=== PATIENT | female | born 2000 | race Caucasian/White ===

== ENCOUNTER 2019-04-21 00:07 | Emergency (ER) | payer BC ==
[2019-04-21] MEDS ORDERED: Haloperidol INJ IV/IM* 5 MG/ML AMP IM ONE (00:36)
[2019-04-21] MEDS ORDERED: LORazepam INJ* 2 MG/ML 1 ML VIAL IM ONE (00:36)
[2019-04-21] MEDS ORDERED: diPHENhydraMINE IV* 50 MG/ML 1 ml VIAL (BENADRYL) IM ONE (00:36)
[2019-04-21] MEDS ORDERED: LORazepam INJ* 2 MG/ML 1 ML VIAL ONE ×2 (00:37→01:05)
--- NOTE | 2019-04-21 00:53 | ED ---
Psychiatric Complaint - HPI Summary HPI Summary: Patient is a 19 y/o F presenting to [facility] for MHE under 941 status. Per triage, "Pt brought in by police willing. Pt states that she can't verify her date of . Pt asked for a piece of paper. She is writing things down on paper stating she is "trying to figure things out."". Nurse Eric reports that the patient has Hx of celiac disease and hep C. When asked what had happened, patient replies, "I don't know". She is uncooperative with exam and history, level 5 caveat. - History Of Current Complaint Chief Complaint: EDMentalHealth Time Seen by Provider: 04/21/19 00:31 Hx Obtained From: Other: - police, nurse Hx From Patient Unobtainable Due To: Other - uncooperative with exam and history , level 5 caveat. Onset/Duration: Still Present Timing: Constant Severity Currently: None Aggravating Factor(s): Nothing Alleviating Factor(s): Nothing - Allergies/Home Medications Allergies/Adverse Reactions: Allergies Allergy/AdvReac Type Severity Reaction Status Date / Time No Known Allergies Allergy Verified 04/21/19 01:14 PMH/Surg Hx/FS Hx/Imm Hx Sensory History: Denies: Hx Legally Blind, Hx Deafness Opthamlomology History: Denies: Hx Legally Blind EENT History: Denies: Hx Deafness Infectious Disease History: No Infectious Disease History: Reports: Hx Hepatitis - C Denies: Traveled Outside the [place] in Last 30 Days - Family History Known Family History: Positive: Unknown - uncooperative with exam and history, level 5 caveat. Review of Systems - ROS Summary Review of Systems Summary: uncooperative with exam and history, level 5 caveat. Negative: Fever - on vitals, temp is 97.9 F Psychological: Other - MHE All Other Systems Reviewed And Are Negative: No - Comments Additional Review of Systems Comments: uncooperative with exam and history, level 5 caveat. Physical Exam - Summary Physical Exam Summary: Appearance: Well-appearing, Well-nourished, lying in bed Skin: Warm, dry, no obvious rash Eyes: sclera anicteric, no conjunctival pallor ENT: mucous membranes moist Neck: deferred Respiratory: No signs of respiratory distress Cardiovascular: Appears well perfused, pulses are nml Abdomen: deferred Musculoskeletal: Moving all 4 extremities without obvious discomfort Neurological: Awake and alert, mentation is normal, speech is fluent and appropriate Psychiatric: Patient is uncooperative Triage Information Reviewed: Yes Vital Signs On Initial Exam: Initial Vitals Temp Pulse Resp BP Pulse Ox 97.9 F 102 18 120/81 99 04/21/19 00:10 04/21/19 00:10 04/21/19 00:10 04/21/19 00:10 04/21/19 00:10 Vital Signs Reviewed: Yes Completion Of Physical Exam Limited Due To: Level 5 Diagnostics - Vital Signs Vital Signs Temp Pulse Resp BP Pulse Ox 04/21/19 00:10 97.9 F 102 18 120/81 99 - Laboratory Result Diagrams: 04/21/19 01:50 04/21/19 01:50 Lab Statement: Any lab studies that have been ordered have been reviewed, and results considered in the medical decision making process. Re-Evaluation - Re-Evaluation First Eval Re-Evaluation Time: 05:57 Comment: Nurse Reyes reports that the patient's grandmother had called with more information with regards to the patient. She reported that the patient had recently been in another hospital for MHE. Patient uses meth and "ice". She states that whenever the patient attempts to stop using these drugs, she begins to experience hallucinations. Patient had broken into a neighbor's house as she had hallucinations of being chased. It is reported that the patient had no SI/ HI. Course/Dx - Course Course Of Treatment: Patient is a 19 y/o F presenting to [facility] for MHE under 941 status. Per triage, "Pt brought in by police willing. Pt states that she can 't verify her date of . Pt asked for a piece of paper. She is writing things down on paper stating she is "trying to figure things out."". Nurse Reyes reports that the patient has Hx of celiac disease and hep C. When asked what had happened, patient replies, "I don't know". She is uncooperative with exam and history, level 5 caveat. Patient was hostile, aggressive, and uncoopeartive with staff. She received ativan 1 mg IM, Benadryl 50 mg IM, and Haldol 5 mg IM. 0557 - Nurse Reyes reports that the patient's grandmother had called with more information with regards to the patient. She reported that the patient had recently been in another hospital for MHE. Patient uses meth and "ice". She states that whenever the patient attempts to stop using these drugs, she begins to experience hallucinations. Patient had broken into a neighbor's house as she had hallucinations of being chased. It is reported that the patient had no SI/ HI. Tox screen showed presumptive positive for amphetamines. UA showed 3+ blood , 2+ leukocyte esterase, 2+ WBC, 3+ RBC, and present squamous epith cells. Bloodwork was obtained. Abnormal values include glucose 107, absolute eos 0.7 and WBC 11.3. Beta HCG was negative and TSH within normal limits. Patient is medically cleared for MHE. Patient is signed out to Dr. Mauro at 0700 04/21/19 shift change pending MHE and disposition of this patient. - Differential Dx/Clinical Impression Provider Diagnosis: Substance induced mood disorder Discharge ED - Sign-Out/Discharge Documenting (check all that apply): Sign-Out Patient Signing out patient TO: Carlos Mauro Patient Received Moderate/Deep Sedation with Procedure: No - Discharge Plan Condition: Stable Disposition: HOME Prescriptions: hydrOXYzine HCL TAB* [Atarax 25 MG TAB*] 25 mg PO TID PRN #15 tab PRN Reason: Anxiety Sulfamethox/Trimethoprim DS* [Bactrim DS 800/160 TAB*] 1 tab PO BID #10 tab Patient Education Materials: Methamphetamine Abuse (ED) Referrals: [facility] [Outside] [facility] [Outside] No Primary Care Phys,NOPCP [Medical Doctor] - - Billing Disposition and Condition Condition: STABLE Disposition: Home - Attestation Statements Document Initiated by Cathie: Yes Documenting Scribe: ERIN KIRAN Provider For Whom Cathie is Documenting (Include Credential): DERICK GUAJARDO MD Scribe Attestation: ERIN Brush, scrkaushiked for DERICK GUAJARDO MD on 04/27/19 at 1842. Scribe Documentation Reviewed: Yes Provider Attestation: The documentation as recorded by the ERIN enriquez accurately reflects the service I personally performed and the decisions made by me, DERICK GUAJARDO MD Status of Scribe Document: Viewed
[2019-04-21] MEDS ORDERED: Haloperidol INJ IV/IM* 5 MG/ML AMP ONE (01:05)
[2019-04-21] MEDS ORDERED: diPHENhydraMINE IV* 50 MG/ML 1 ml VIAL (BENADRYL) ONE (01:05)
[2019-04-21 01:21] LABS: Urine Appearance Clear; Urine Bacteria Absent (Absent); Urine Bilirubin Negative (Negative); Urine Blood 3+ (Negative); Urine Color Yellow; Urine Glucose Negative (Negative); Urine Ketones Negative (Negative); Urine Nitrite Negative (Negative); Urine Protein Negative (Negative); Urine Red Blood Cell 3+(>10/hpf) (Absent); Urine Specific Gravity 1.005 (1.010-1.030); Urine Squamous Epithelial Cell Present (Absent); Urine Urobilinogen Negative (Negative); Urine White Blood Cell 2+(11-20/hpf) (Absent)
[2019-04-21 01:31] LABS: Urine Benzodiazepine Screen None Detected (None Detect); Urine Opiates Screen None Detected (None Detect)
[2019-04-21 01:56] LABS: ABS Basophils 0.1 10^3/ul (0-0.2); ABS Eosinophils 0.7 10^3/ul (0-0.6); ABS Lymphocytes 3.8 10^3/ul (1.0-4.8); ABS Monocytes 0.8 10^3/ul (0-0.8); ABS Neutrophils 5.9 10^3/ul (1.5-7.7); Eosinophil % 5.9 %; Hematocrit 41 % (35-47); Hemoglobin 13.8 g/dL (12.0-16.0); Lymphocyte % 33.8 %; Mean Corpuscular HGB Conc 34 g/dL (31-36); Mean Corpuscular Hemoglobin 29 pg (27-31); Mean Corpuscular Volume 86 fL (80-97); Mean Platelet Volume 7.4 fL (7.4-10.4); Platelet Count 302 10^3/uL (150-450); Red Blood Count 4.77 10^6 /uL (3.70-4.87); Red Cell Distribution Width 15 % (10-15); White Blood Count 11.3 10^3/uL (3.5-10.8)
[2019-04-21 02:13] LABS: ALT 20 U/L (7-52); AST 29 U/L (13-39); Albumin/Globulin Ratio 1.3 (1-3); Alkaline Phosphatase 99 U/L (34-104); Anion Gap 9 mmol/L (2-11); BUN/Creatinine Ratio 14.9 (8-20); Blood Urea Nitrogen 10 mg/dL (6-24); CO2 Carbon Dioxide 28 mmol/L (22-32); Calcium 9.4 mg/dL (8.6-10.3); Chloride 101 mmol/L (101-111); EGFR African American 135.8 (>60); EGFR Non-African American 112.2 (>60); Glucose 107 mg/dL (70-100); Potassium 3.5 mmol/L (3.5-5.0); Sodium 138 mmol/L (135-145)
[2019-04-21 02:18] LABS: Acetaminophen < 15 mcg/mL; Alcohol < 10 mg/dL (<10); Salicylate < 2.50 mg/dL (<30)
[2019-04-21 02:19] LABS: HCG Pregnancy < 0.60 mIU/mL
[2019-04-21 02:33] LABS: TSH (Thyroid Stimulating Horm) 2.81 mcIU/mL (0.34-5.60)
--- NOTE | 2019-04-21 09:22 | PN ---
ED Psychiatric Progress Note Date of Service: 04/21/19 Subjective: This is a 19 year-old F who is pending admission to [facility] / transfer to another psychiatric facility / discharge to home / or being observed secondary to hallucinations, drug use. Pt. examined in room 5 at 0915. She is sleeping comfortably. 1:1 outside of room. Objective: Vitals: Most recent vital signs documented below. General NAD Laboratory: Current laboratory results documented below. Assessment: drug use Plan: Pending MHE. Vital Signs Temp Pulse Resp BP Pulse Ox 97.9 F 75 18 103/67 98 04/21/19 00:10 04/21/19 09:00 04/21/19 01:15 04/21/19 09:00 04/21/19 09:00 Lab Results - Entire Visit 04/21/19 04/21/19 04/21/19 01:50 01:50 00:54 WBC 11.3 H RBC 4.77 Hgb 13.8 Hct 41 MCV 86 MCH 29 MCHC 34 RDW 15 Plt Count 302 MPV 7.4 Neut % (Auto) 52.3 Lymph % (Auto) 33.8 Iron % (Auto) 7.4 Eos % (Auto) 5.9 Baso % (Auto) 0.6 Absolute Neuts (auto) 5.9 Absolute Lymphs (auto) 3.8 Absolute Monos (auto) 0.8 Absolute Eos (auto) 0.7 H Absolute Basos (auto) 0.1 Absolute Nucleated RBC 0.0 Nucleated RBC % 0.0 Sodium 138 Potassium 3.5 Chloride 101 Carbon Dioxide 28 Anion Gap 9 BUN 10 Creatinine 0.67 Est GFR ( Amer) 135.8 Est GFR (Non-Af Amer) 112.2 BUN/Creatinine Ratio 14.9 Glucose 107 H Calcium 9.4 Total Bilirubin 0.50 AST 29 ALT 20 Alkaline Phosphatase 99 Total Protein 7.0 Albumin 4.0 Globulin 3.0 Albumin/Globulin Ratio 1.3 TSH 2.81 Beta HCG, Quant < 0.60 Urine Color Urine Appearance Urine pH Ur Specific [place] Urine Protein Urine Ketones Urine Blood Urine Nitrate Urine Bilirubin Urine Urobilinogen Ur Leukocyte Esterase Urine WBC (Auto) Urine RBC (Auto) Ur Squamous Epith Cells Urine Bacteria Urine Glucose Salicylates < 2.50 Urine Opiates Screen None detected Acetaminophen < 15 Ur Barbiturates Screen None detected Ur Phencyclidine Scrn None detected Ur Amphetamines Screen Presumptive positive A U Benzodiazepines Scrn None detected Urine Cocaine Screen None detected U Cannabinoids Screen None detected Serum Alcohol < 10 04/21/19 00:54 WBC RBC Hgb Hct MCV MCH MCHC RDW Plt Count MPV Neut % (Auto) Lymph % (Auto) Iron % (Auto) Eos % (Auto) Baso % (Auto) Absolute Neuts (auto) Absolute Lymphs (auto) Absolute Monos (auto) Absolute Eos (auto) Absolute Basos (auto) Absolute Nucleated RBC Nucleated RBC % Sodium Potassium Chloride Carbon Dioxide Anion Gap BUN Creatinine Est GFR ( Amer) Est GFR (Non-Af Amer) BUN/Creatinine Ratio Glucose Calcium Total Bilirubin AST ALT Alkaline Phosphatase Total Protein Albumin Globulin Albumin/Globulin Ratio TSH Beta HCG, Quant Urine Color Yellow Urine Appearance Clear Urine pH 7.0 Ur Specific [place] 1.005 L Urine Protein Negative Urine Ketones Negative Urine Blood 3+ A Urine Nitrate Negative Urine Bilirubin Negative Urine Urobilinogen Negative Ur Leukocyte Esterase 2+ A Urine WBC (Auto) 2+(11-20/hpf) A Urine RBC (Auto) 3+(>10/hpf) A Ur Squamous Epith Cells Present A Urine Bacteria Absent Urine Glucose Negative Salicylates Urine Opiates Screen Acetaminophen Ur Barbiturates Screen Ur Phencyclidine Scrn Ur Amphetamines Screen U Benzodiazepines Scrn Urine Cocaine Screen U Cannabinoids Screen Serum Alcohol
--- NOTE | 2019-04-21 14:10 | ED ---
Progress - Progress Note Progress Note: Receiving sign-out from Dr. Cole at shift change 0700 pending MHE. MHE discharged the patient to [facility] with a Dx of substance induced mood disorder, per Dr. Ray, Psychiatry. - Consult/PCP Time Called: 13:19 Re-Evaluation - Re-Evaluation First Eval Re-Evaluation Time: 05:57 Comment: Nurse Eric reports that the patient's grandmother had called with more information with regards to the patient. She reported that the patient had recently been in another hospital for MHE. Patient uses meth and "ice". She states that whenever the patient attempts to stop using these drugs, she begins to experience hallucinations. Patient had broken into a neighbor's house as she had hallucinations of being chased. It is reported that the patient had no SI/ HI. Course/Dx - Course Course Of Treatment: Receiving sign-out from Dr. Cole at shift change 0700 pending MHE. Patient has remained stable. MHE discharged the patient to [facility] with a Dx of substance induced mood disorder, per Dr. Ray, Psychiatry. - Diagnoses Provider Diagnoses: Substance induced mood disorder Discharge ED - Sign-Out/Discharge Documenting (check all that apply): Patient Departure - Discharge, per MHE Patient Received Moderate/Deep Sedation with Procedure: No - Discharge Plan Condition: Stable Referrals: No Primary Care Phys,NOPCP [Medical Doctor] - - Attestation Statements Document Initiated by Scribe: Yes Documenting Scribe: Janes Paz Provider For Whom Scribe is Documenting (Include Credential): Carlos Mauro MD Scribe Attestation: Janes Brush, scribed for Carlos Mauro MD on 04/21/19 at 1420. Status of Scribe Document: Ready
[2019-04-21 14:34] VITALS: BP 97/53
[2019-04-21] MEDS ORDERED: Sulfamethox/Trimethoprim DS 800/160* TAB PO ONE (14:35)
== END 2019-04-21 14:44 | disposition home or self-care (01) ==
LOC: ED 00:07
DX: F15.14 Other stimulant abuse with stimulant-induced mood disorder (principal); B19.20 Unspecified viral hepatitis C without hepatic coma; K90.0 Celiac disease; F15.10 Other stimulant abuse, uncomplicated
CPT/HCPCS: 36415; 80053; 80307; 80320; 80329; 81003; 81015; 84443; 84702; 85025; 87077; 87086; 87186; 96372; 99284; G0480; J1200; J1630; J2060

== ENCOUNTER 2019-05-20 17:09 | Emergency (ER) | payer BC ==
--- NOTE | 2019-05-20 17:42 | ED ---
Psychiatric Complaint - HPI Summary HPI Summary: The patient is a 19 y/o F brought in by police as 941 to [facility] with a chief complaint of running from the police after attempting to jump off a two story building tonight. She denies any SI or HI. Per grandmother, the patient's friend and significant other had to talk the patient down from paranoia and take a knife away from her because she was threatening to hurt herself so the police were called. Currently, her symptoms are rated 5/10 in severity. PMHx: schizophrenia, delusions, hepatitis C, celiac disease. Heavy every day smoker, occasional EtOH, marijuana and ICE use. Medications reviewed. Allergies noted. - History Of Current Complaint Chief Complaint: EDMentalHealth Hx Obtained From: Patient, Other: - police report Onset/Duration: Still Present Severity Initially: Moderate Severity Currently: Moderate Character: Depressed Aggravating Factor(s): Nothing Alleviating Factor(s): Nothing Related History: Positive For: Prior Psychiatric Issues Has Suicidal: Denies: Thoughts Has Homicidal: Denies: Thoughts - Allergies/Home Medications Allergies/Adverse Reactions: Allergies Allergy/AdvReac Type Severity Reaction Status Date / Time No Known Allergies Allergy Verified 04/21/19 01:14 Home Medications: Home Medications Naloxone Nasal [place]* [Narcan Nasal [place]] 1 inh LEFT NARE ONCE PRN 05/20/19 [ History Confirmed 05/20/19] PMH/Surg Hx/FS Hx/Imm Hx Endocrine/Hematology History: Denies: Hx Diabetes Cardiovascular History: Denies: Hx Hypercholesterolemia, Hx Hypertension Sensory History: Denies: Hx Legally Blind, Hx Deafness Opthamlomology History: Denies: Hx Legally Blind - Surgical History Surgical History: None Surgery Procedure, Year, and Place: none Infectious Disease History: No Infectious Disease History: Reports: Hx Hepatitis - C Denies: Traveled Outside the [place] in Last 30 Days - Family History Known Family History: Negative: Hypertension, Diabetes - Social History Alcohol Use: Occasionally Hx Substance Use: Yes Substance Use Type: Reports: Marijuana, Other - ICE Hx Tobacco Use: Yes Smoking Status (MU): Heavy Every Day Tobacco Smoker Review of Systems Negative: Fever Negative: Other - SI, HI All Other Systems Reviewed And Are Negative: Yes Physical Exam - Summary Physical Exam Summary: VITAL SIGNS: Reviewed. GENERAL: Patient is a well-developed and nourished female who is lying comfortable in the stretcher. Patient is not in any acute respiratory distress. HEAD AND FACE: No signs of trauma. No ecchymosis, hematomas or skull depressions. No sinus tenderness. EYES: PERRLA, EOMI x 2, No injected conjunctiva, no nystagmus. EARS: Hearing grossly intact. Ear canals and tympanic membranes are within normal limits. MOUTH: Oropharynx within normal limits. NECK: Supple, trachea is midline, no adenopathy, no JVD, no carotid bruit, no c- spine tenderness, neck with full ROM. CHEST: Symmetric, no tenderness at palpation. LUNGS: Clear to auscultation bilaterally. No wheezing or crackles. CVS: Regular rate and rhythm, S1 and S2 present, no murmurs or gallops appreciated. ABDOMEN: Soft, non-tender. No signs of distention. No rebound, no guarding, and no masses palpated. Bowel sounds are normal. EXTREMITIES: FROM in all major joints, no edema, no cyanosis or clubbing. NEURO: Alert and oriented x 3. No acute neurological deficits. Speech is normal and follows commands. SKIN: Dry and warm. PSYCH: Depressed, quiet, and denies any suicidal thoughts or plan. No homicidal thoughts or plan. No signs of psychosis or pressure speech. No tangential speech. Triage Information Reviewed: Yes Vital Signs On Initial Exam: Initial Vitals Temp Pulse Resp BP Pulse Ox 97.4 F 102 18 115/87 96 05/20/19 17:11 05/20/19 17:11 05/20/19 17:11 05/20/19 17:11 05/20/19 17:11 Vital Signs Reviewed: Yes Procedures - Sedation Patient Received Moderate/Deep Sedation with Procedure: No Diagnostics - Vital Signs Vital Signs Temp Pulse Resp BP Pulse Ox 05/20/19 17:11 97.4 F 102 18 115/87 96 - Laboratory Lab Statement: Any lab studies that have been ordered have been reviewed, and results considered in the medical decision making process. Re-Evaluation - Re-Evaluation First Eval Re-Evaluation Time: 18:00 Change: Unchanged Comment: Patient is medically clear for mental health back panel padder. Course/Dx - Course Assessment/Plan: Patient is a 19 y/o F who has psychiatric history brought in as 941 for wanting to hurt herself earlier with a knife, but police were called atfer the knife was taken away from her by friend and significant other. She is denying any SI or HI now. Blood work w/o a significant abnormality. She is medically cleared. She is awaiting a MHE. Patient is hemodynamically stable and A+O x 3. Patient will be signed out to Dr. Vincent at shift change at 1900 on . - Differential Dx/Clinical Impression Provider Diagnosis: Psychosis Discharge ED - Sign-Out/Discharge Documenting (check all that apply): Sign-Out Patient Signing out patient TO: Madhu Vincent - Patient is a sign-out to Dr. Madhu Vincent MD, at change of shift at 1900 on 05/20/19, pending mental health evaluation and disposition. - Discharge Plan Referrals: Sylvia Mitchell VOCATIONAL REHABILITATION ADMINISTRATOR [Primary Care Provider] - - Attestation Statements Document Initiated by Cathie: Yes Documenting Scribe: Penny Conner Provider For Whom Cathie is Documenting (Include Credential): Dr. Jian Lopez MD Scribe Attestation: Penny Brush scribed for Dr. Jian Lopez MD on 05/20/19 at 1850. Scribe Documentation Reviewed: Yes Provider Attestation: The documentation as recorded by the Penny enriquez accurately reflects the service I personally performed and the decisions made by me, Dr. Jian Lopez MD Status of Scribe Document: Ready
[2019-05-20 19:05] LABS: ABS Eosinophils 0.5 10^3/ul (0-0.6); ABS Lymphocytes 2.2 10^3/ul (1.0-4.8); ABS Monocytes 0.8 10^3/ul (0-0.8); ABS Neutrophils 8.2 10^3/ul (1.5-7.7); Eosinophil % 4.5 %; Hematocrit 40 % (35-47); Hemoglobin 13.6 g/dL (12.0-16.0); Lymphocyte % 18.6 %; Mean Corpuscular HGB Conc 34 g/dL (31-36); Mean Corpuscular Hemoglobin 30 pg (27-31); Mean Corpuscular Volume 88 fL (80-97); Mean Platelet Volume 7.8 fL (7.4-10.4); Platelet Count 258 10^3/uL (150-450); Red Blood Count 4.55 10^6 /uL (3.70-4.87); Red Cell Distribution Width 16 % (10-15); White Blood Count 11.8 10^3/uL (3.5-10.8)
[2019-05-20 19:15] LABS: Urine Appearance Turbid; Urine Bacteria Absent (Absent); Urine Bilirubin Negative (Negative); Urine Blood Negative (Negative); Urine Color Yellow; Urine Glucose Negative (Negative); Urine Ketones Negative (Negative); Urine Nitrite Negative (Negative); Urine Protein 1+(30 mg/dL) (Negative); Urine Red Blood Cell 1+(3-5/hpf) (Absent); Urine Specific Gravity 1.015 (1.010-1.030); Urine Squamous Epithelial Cell Present (Absent); Urine Transitional Epithelial Present (Absent); Urine Urobilinogen Negative (Negative); Urine White Blood Cell 3+(>20/hpf) (Absent)
[2019-05-20 19:20] LABS: ALT 11 U/L (7-52); AST 15 U/L (13-39); Albumin 4.2 g/dL (3.2-5.2); Albumin/Globulin Ratio 1.4 (1-3); Alkaline Phosphatase 96 U/L (34-104); Anion Gap 6 mmol/L (2-11); BUN/Creatinine Ratio 14.7 (8-20); Blood Urea Nitrogen 11 mg/dL (6-24); CO2 Carbon Dioxide 30 mmol/L (22-32); Calcium 9.3 mg/dL (8.6-10.3); Chloride 103 mmol/L (101-111); EGFR African American 119.2 (>60); EGFR Non-African American 98.5 (>60); Globulin 2.9 g/dL (2-4); Glucose 87 mg/dL (70-100); Potassium 3.4 mmol/L (3.5-5.0); Sodium 139 mmol/L (135-145); Total Protein 7.1 g/dL (6.4-8.9)
[2019-05-20 19:37] LABS: Acetaminophen < 15 mcg/mL; Alcohol < 10 mg/dL (<10); Salicylate < 2.50 mg/dL (<30)
[2019-05-20 19:40] LABS: TSH (Thyroid Stimulating Horm) 0.86 mcIU/mL (0.34-5.60)
[2019-05-20 19:43] LABS: Urine Benzodiazepine Screen None Detected (None Detect); Urine Opiates Screen None Detected (None Detect)
--- NOTE | 2019-05-20 20:00 | ED ---
Progress - Progress Note Progress Note: Pt is a signout from Dr. Lopez at 1900 on 05/20/19 pending MHE. Re-Evaluation - Re-Evaluation First Eval Re-Evaluation Time: 00:57 Change: Unchanged Comment: Pt will be placed on a MH Hold until the morning as per Dr. Larson. Course/Dx - Course Course Of Treatment: Patient was signed out by Dr. Lopez pending mental health evaluation. The mental health family and consumer science professor evaluated patient and placed her on mental health hold until psychiatry can see patient in person. Patient signed out to Dr. Lopez pending MHE - Diagnoses Provider Diagnoses: Psychosis Discharge ED - Sign-Out/Discharge Documenting (check all that apply): Sign-Out Patient, Receiving Sign-Out Signing out patient TO: Jian Lopez Receiving patient FROM: Jian Lopez - Discharge Plan Condition: Stable Referrals: Sylvia Mitchell, REFUELING RAMP SUPERVISOR [Primary Care Provider] - - Billing Disposition and Condition Condition: STABLE - Attestation Statements Document Initiated by Scribe: Yes Documenting Scribe: Michelle Crowder Provider For Whom Scribe is Documenting (Include Credential): Madhu Vincent MD. Scribe Attestation: Michelle Brush, clementinaed for Madhu Vincent MD. on 05/21/19 at 0355. Scribe Documentation Reviewed: Yes Provider Attestation: The documentation as recorded by the scribeMichelle accurately reflects the service I personally performed and the decisions made by Madhu sanchez MD. Status of Scribe Document: Viewed
[2019-05-20] MEDS: Nicotine* 4MG (FRUIT FLAVOR) GUM PO PRN (20:29)
[2019-05-21] MEDS: diPHENhydraMINE PO* 25 MG PO ONE (01:24)
[2019-05-21] MEDS: Haloperidol TAB* 5 MG PO ONE (01:25)
--- NOTE | 2019-05-21 08:00 | ED ---
Progress - Progress Note Progress Note: This pt was signed out from Dr. Vincent to Dr. Lopez pending evaluation from psychiatrist in the morning. Course/Dx - Diagnoses Provider Diagnoses: Psychosis Discharge ED - Sign-Out/Discharge Documenting (check all that apply): Receiving Sign-Out Receiving patient FROM: Madhu Vincent - Discharge Plan Condition: Stable Referrals: Sylvia Mitchell, AIR SUPPORT OPERATIONS OPERATOR [Primary Care Provider] - - Attestation Statements Document Initiated by Scribe: Yes Documenting Scribe: Kaylee Zapien Provider For Whom Scribe is Documenting (Include Credential): Jian Lopez MD Scribe Attestation: Kaylee Brush, scribed for Jian Lopez MD on 05/21/19 at 0759. Status of Scribe Document: Viewed
--- NOTE | 2019-05-21 08:34 | PN ---
ED Psychiatric Progress Note Date of Service: 05/20/19 Subjective: This is a 19 year-old F who is pending admission to [facility] / transfer to another psychiatric facility / discharge to home / or being observed secondary to psychosis. Pt. examined in room 4 at 0830. She is sleeping comfortably. 1:1 outside of room. Objective: Vitals: Most recent vital signs documented below. General NAD. Laboratory: Current laboratory results documented below. Assessment: Psychosis. Plan: Pending MHE. Vital Signs Temp Pulse Resp BP Pulse Ox 97.7 F 67 18 94/47 97 05/21/19 03:55 05/21/19 03:55 05/21/19 03:55 05/21/19 03:55 05/21/19 03:55 Lab Results - Entire Visit 05/20/19 05/20/19 05/20/19 18:47 18:47 18:25 WBC 11.8 H RBC 4.55 Hgb 13.6 Hct 40 MCV 88 MCH 30 MCHC 34 RDW 16 H Plt Count 258 MPV 7.8 Neut % (Auto) 70.0 Lymph % (Auto) 18.6 [place] % (Auto) 6.5 Eos % (Auto) 4.5 Baso % (Auto) 0.4 Absolute Neuts (auto) 8.2 H Absolute Lymphs (auto) 2.2 Absolute Monos (auto) 0.8 Absolute Eos (auto) 0.5 Absolute Basos (auto) 0.0 Absolute Nucleated RBC 0.0 Nucleated RBC % 0.0 Sodium 139 Potassium 3.4 L Chloride 103 Carbon Dioxide 30 Anion Gap 6 BUN 11 Creatinine 0.75 Est GFR ( Amer) 119.2 Est GFR (Non-Af Amer) 98.5 BUN/Creatinine Ratio 14.7 Glucose 87 Calcium 9.3 Total Bilirubin 0.50 AST 15 ALT 11 Alkaline Phosphatase 96 Total Protein 7.1 Albumin 4.2 Globulin 2.9 Albumin/Globulin Ratio 1.4 TSH 0.86 Urine Color Urine Appearance Urine pH Ur Specific [place] Urine Protein Urine Ketones Urine Blood Urine Nitrate Urine Bilirubin Urine Urobilinogen Ur Leukocyte Esterase Urine WBC (Auto) Urine RBC (Auto) Ur Squamous Epith Cells Ur Transition Epith Cell Urine Bacteria Urine Glucose Salicylates < 2.50 Urine Opiates Screen None detected Acetaminophen < 15 Ur Barbiturates Screen None detected Ur Phencyclidine Scrn None detected Ur Amphetamines Screen Presumptive positive A U Benzodiazepines Scrn None detected Urine Cocaine Screen None detected U Cannabinoids Screen None detected Serum Alcohol < 10 05/20/19 18:25 WBC RBC Hgb Hct MCV MCH MCHC RDW Plt Count MPV Neut % (Auto) Lymph % (Auto) [place] % (Auto) Eos % (Auto) Baso % (Auto) Absolute Neuts (auto) Absolute Lymphs (auto) Absolute Monos (auto) Absolute Eos (auto) Absolute Basos (auto) Absolute Nucleated RBC Nucleated RBC % Sodium Potassium Chloride Carbon Dioxide Anion Gap BUN Creatinine Est GFR ( Amer) Est GFR (Non-Af Amer) BUN/Creatinine Ratio Glucose Calcium Total Bilirubin AST ALT Alkaline Phosphatase Total Protein Albumin Globulin Albumin/Globulin Ratio TSH Urine Color Yellow Urine Appearance Turbid Urine pH 7.0 Ur Specific [place] 1.015 Urine Protein 1+(30 mg/dl) A Urine Ketones Negative Urine Blood Negative Urine Nitrate Negative Urine Bilirubin Negative Urine Urobilinogen Negative Ur Leukocyte Esterase 2+ A Urine WBC (Auto) 3+(>20/hpf) A Urine RBC (Auto) 1+(3-5/hpf) A Ur Squamous Epith Cells Present A Ur Transition Epith Cell Present A Urine Bacteria Absent Urine Glucose Negative Salicylates Urine Opiates Screen Acetaminophen Ur Barbiturates Screen Ur Phencyclidine Scrn Ur Amphetamines Screen U Benzodiazepines Scrn Urine Cocaine Screen U Cannabinoids Screen Serum Alcohol
--- NOTE | 2019-05-21 16:44 | ED ---
Progress - Progress Note Progress Note: PRIOR CHART SIGNED BY NURYAKE. This pt was signed out from Dr. Vincent to Dr. Lopez pending evaluation from psychiatrist in the morning. Re-Evaluation - Re-Evaluation First Eval Re-Evaluation Time: 00:57 Change: Unchanged Comment: Pt will be placed on a MH Hold until the morning as per Dr. Larson. Course/Dx - Course Course Of Treatment: Pt had a mental health evaluation and her case was reviewed by Dr. Ray, psychiatrist. Dr. Ray cleared the pt for discharged with dx amphetamine induced mood disorder. - Diagnoses Provider Diagnoses: Amphetamine-induced mood disorder Discharge ED - Sign-Out/Discharge Documenting (check all that apply): Patient Departure - Discharge home, Receiving Sign-Out Receiving patient FROM: Madhu Vincent - Discharge Plan Condition: Stable Disposition: HOME Referrals: Sylvia Mitchell SURGICAL TECHNOLOGIST [Primary Care Provider] - - Billing Disposition and Condition Condition: STABLE Disposition: Home - Attestation Statements Document Initiated by Cathie: Yes Documenting Scribe: Kaylee Zapien Provider For Whom Cathie is Documenting (Include Credential): Jian Lopez MD Scribe Attestation: Kaylee Brush scribed for Jian Lopez MD on 05/22/19 at 0837. Scribe Documentation Reviewed: Yes Provider Attestation: The documentation as recorded by the Kaylee enriquez accurately reflects the service I personally performed and the decisions made by me, Jian Lopez MD Status of Scribe Document: Viewed
[2019-05-21 18:10] VITALS: BP 89/45
== END 2019-05-21 18:08 | disposition home or self-care (01) ==
LOC: ED 17:09
DX: F15.94 Other stimulant use, unspecified with stimulant-induced mood disorder (principal); F29 Unspecified psychosis not due to a substance or known physiological condition; F20.9 Schizophrenia, unspecified; F17.200 Nicotine dependence, unspecified, uncomplicated
CPT/HCPCS: 36415; 80053; 80307; 80320; 80329; 81003; 81015; 84443; 85025; 87077; 87086; 87186; 99284; A9270-GY; G0480